=== PATIENT | female | born 1960 | race Caucasian/White ===

== ENCOUNTER 2023-08-11 11:26 | Emergency (ER) | payer BC, SELFPAY ==
[2023-08-11 11:27] VITALS: BP 136/80
[2023-08-11] MEDS: TORADOL 30 MG IM (13:20)
[2023-08-11] MEDS: VALIUM 5 MG PO (13:20)
[2023-08-11 14:57] VITALS: BP 133/71
--- NOTE | 2023-08-11 15:13 | ED.GENMED ---
History of Present Illness
General
Chief Complaint: Musculo-Skeletal Complaint
Source: patient
Exam Limitations: none
Time Seen by Provider: 08/11/23 12:09
Nursing documentation reviewed up to this point in time: agreed with
History of Present Illness
History of Present Illness:
63-year-old female past medical history of GERD presenting to the emergency department today with concerns of left lateral neck discomfort over the past 4 days woke up with this after sleeping on her side. Denies numbness weakness or additional
concerns. Took a muscle relaxant at home without relief. Has been using heating pad that that seems to help for short periods of time.
Past History
Past History
ED Past Medical History: None, GERD and Psychiatric (depression)
ED Past Surgical History: Cholecystectomy and Gynecological
Patient has exhibited threatening behavior?: No
Social History
Tobacco: Smoker (1 pack per week, last cigarette was 2 weeks ago)
Alcohol: Occasional
Drug: None
Employment: Employed
Review of Systems
Review of Systems
Allergies reviewed?: Yes
All Other Systems: ROS reviewed and negative except as documented in HPI and ROS
Phy Exam
Physical Exam
Physical Exam:
GENERAL: Alert , in no apparent distress
EYE: pupils equal and reactive
NECK: Supple, no significant adenopathy.
ENT: o/p clr, mmm.
CARDIAC: Regular rate and rhythm .
LUNGS: Clear breath sounds bilaterally, no acute respiratory distress, no wheezes/rales/rhonchi
ABDOMEN: Soft, without focal tenderness, no r/g, no cvat
NEUROLOGICAL: Alert and oriented, no focal neuro deficits
SKIN: Warm and dry, skin intact.
MUSCULOSKELETAL: No edema, well perfused.
PSYCH: Normal and appropriate interaction.
Muscle spasm tenderness palpation about the left sternocleidomastoid. No redness or warmth no bruit normal neurologic evaluation of the upper and lower extremities
Course
Orders/Labs/Results
Orders:
Orders
08/11/23 13:11
Diazepam [Valium] 5 mg PO NOW STA
Ketorolac [Toradol] 30 mg IM NOW STA
CR Cervical Spine 4 Or 5 Vw Urgent
Comment:
Reason For Exam: neck pain
Vital Signs
Initial and Last Documented VS:
Initial Vital Signs
Temp Pulse Resp BP Pulse Ox
98.0 F 68 18 136/80 95
08/11/23 11:27 08/11/23 11:27 08/11/23 11:27 08/11/23 11:27 08/11/23 11:27
Last Documented Vital Signs
Temp Pulse Resp BP Pulse Ox
98.0 F 55 16 133/71 98
08/11/23 11:27 08/11/23 14:57 08/11/23 14:57 08/11/23 14:57 08/11/23 14:57
MDM/Problems Addressed
MDM/Problems Addressed:
63-year-old female presenting to the emergency department today with concerns of left lateral neck discomfort occurring over the past 4 days seem to occur after awakening. No neurologic symptoms seems to be very unlikely be related to vascular
injury specifically worse with movement and palpation at the sternocleidomastoid. Patient was given Valium with good improvement of symptoms x-ray without emergent findings stable for outpatient management return precautions given.
*Critical Care Note
Total Time (30-74mins, 75-104mins- exclusive of procedures): Not Applicable
ED Attending Note
-
Portions of this chart may have been created with voice recognition software.� Occasional wrong word or��sound alike� substitutions may have occurred due to the inherent limitations of voice recognition software.
Discharge Plan
Departure
Patient Disposition: Home (Routine Discharge)
Date of Disposition: 08/11/23
Time of Disposition: 15:13
Patient with high blood pressure during this ER visit?: No
Condition: Good
Covid-19: Not Applicable
Discharge Problem:
Neck strain
Instructions: Muscle Strain (DC)
Prescriptions:
New
ibuprofen 600 mg tablet
600 mg PO Q6H PRN (Reason: Pain) Qty: 14 0RF
diazepam [Valium] 5 mg tablet
5 mg PO BID PRN (Reason: muscle spasm) Qty: 5 0RF
No Action
prednisone 20 MG tablet
40 mg PO DAILY Qty: 6 0RF
diclofenac sodium 75 mg tablet,delayed release (DR/EC)
75 mg PO BID Qty: 20 0RF
methocarbamol 750 mg tablet
750 mg PO TID PRN (Reason: muscle pain) Qty: 20 0RF
Referrals:
Paradise Gaviria DO [Family Provider] -
Activity Restrictions/Additional Instructions:
You came to the emergency department today with concerns of neck discomfort. This appears to be a muscle injury to your neck. Please take the prescribed medications to help with symptoms and otherwise follow-up with the primary care doctor in the
next few days if symptoms are persisting. Return to the emergency department any worsening, new or concerning symptoms.
Interventions
Interventions:
*Risk Screen - Suicide Last Done: 08/11/23 11:45
*General Assessment Last Done: 08/11/23 11:45
*Neglect/Abuse Screening Last Done: 08/11/23 11:45
ED- Fall Risk Assessment Last Done: 08/11/23 15:22
*ED COVID-19 Vaccine History Last Done: 08/11/23 11:28
*Nursing Disposition Last Done: 08/11/23 15:22
ED-Musculoskeletal Assessment Last Done: 08/11/23 11:45
Discharge Date and Time
Discharge Date/Time: 08/11/23 15:22
Print Language: ICELANDIC
== END 2023-08-11 15:22 | disposition home or self-care (01) ==
LOC: EMR 11:26
PROVIDERS: EMERGENCY PHYSICIAN Emergency Medicine; FAMILY PHYSICIAN Family Medicine
DX: S16.1XXA Strain of muscle, fascia and tendon at neck level, initial encounter (principal); X58.XXXA Exposure to other specified factors, initial encounter; K21.9 Gastro-esophageal reflux disease without esophagitis; F17.210 Nicotine dependence, cigarettes, uncomplicated
CPT/HCPCS: 99284; 96372; 72050

== ENCOUNTER 2024-02-02 06:21 | Day surgery (SDC) | payer BC, SELFPAY | END 2024-02-02 10:40 | LOC: GI 06:21 | PROVIDERS: ATTENDING PHYSICIAN Internal Medicine Gastroenterology | DX: Z12.11 Encounter for screening for malignant neoplasm of colon (principal); K64.8 Other hemorrhoids; K29.50 Unspecified chronic gastritis without bleeding; K21.9 Gastro-esophageal reflux disease without esophagitis | CPT/HCPCS: 43239; G0121; 88305; 88342 ==